=== PATIENT | female | born 1940 | race Caucasian/White ===

== ENCOUNTER 2018-06-03 11:57 | Emergency (ER) | payer MEDICARE, OTHER ==
[~2018-06-03] VITALS: Ht 167.6 cm; Wt 53.1 kg
--- NOTE | 2018-06-03 12:37 | NUR ---
PT IS IN ROOM #1B. DR TOLENTINO EVALUATED THE PT.
--- NOTE | 2018-06-03 12:37 | NUR ---
[facility] WAS CALLED ACCORDING TO DR TOLENTINO ORDER TO TRANSFER PT TO [facility] FOR CT OF THE CHEST. LUZ ELENA IS 15 MINUTES.
[2018-06-03] MEDS ORDERED: HYDROCODONE/APAP 5-325MG TABLET PO ONE (12:45)
[2018-06-03] MEDS ORDERED: HYDROCODONE/APAP 10-325 MG TABLET ONE (12:48)
[2018-06-03] MEDS ORDERED: HYDROCODONE/APAP 5-325MG TABLET ONE (12:50)
--- NOTE | 2018-06-03 14:36 | NUR ---
PT WAS TRANSFERED TO [facility] FOR CT OFTHE CHEST, PT CAME BACK ALREADY. NO S/S OF DISTRESS. PT TOLERATED TO PROCEDURE WITHOUT COMPLICATIONS.
[2018-06-03 14:38] VITALS: BP 139/79
--- NOTE | 2018-06-03 14:40 | NUR ---
PT WAS D/C TO HOME. D/C INSTRUCTIONS GIVEN TO THE PT.
== END 2018-06-03 14:42 | disposition home or self-care (01) ==
LOC: ER 11:59
DX: S20.212A Contusion of left front wall of thorax, initial encounter (principal); Z86.73 Personal history of transient ischemic attack (TIA), and cerebral infarction without residual deficits; W01.198A Fall on same level from slipping, tripping and stumbling with subsequent striking against other object, initial encounter; Y93.89 Activity, other specified; Y92.89 Other specified places as the place of occurrence of the external cause; Y99.8 Other external cause status
CPT/HCPCS: 71250; A4663

== ENCOUNTER 2018-07-27 21:16 | Emergency (ER) | payer MEDICARE, BC ==
[~2018-07-27] VITALS: Ht 167.6 cm; Wt 67.1 kg
[2018-07-27] MEDS ORDERED: ALTEPLASE 100 MG VIAL IV ONE ×2 (21:18→22:00)
--- NOTE | 2018-07-27 21:26 | NUR ---
Patient out of unit for ct scan via gurny with staff nurse and warehouse inventory clerk
--- NOTE | 2018-07-27 21:30 | NUR ---
While being transport from [facility] to ct scan table patient vomited x1. Patient able to state full name with slurred speech. 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 Able to lift bilateral lower extremity. No facial drooping noted
[2018-07-27 21:35] LABS: BASOPHILS % (AUTO) 0.7 % (0.0-2.0); EOSINOPHILS # (AUTO) 0.1 K/uL (0.0-0.7); EOSINOPHILS % (AUTO) 0.9 % (0.0-7.0); HEMATOCRIT 38.1 % (31.2-41.9); LYMPHOCYTES # (AUTO) 3.5 K/uL (20.0-40.0); LYMPHOCYTES % (AUTO) 55.7 % (20.5-51.5); MEAN CORPUSCULAR HEMOGLOBIN 31.3 uug (24.7-32.8); MEAN CORPUSCULAR HGB CONC 34 g/dL (32.3-35.6); MEAN CORPUSCULAR VOLUME 91.5 fL (75.5-95.3); MONOCYTES # (AUTO) 0.4 K/uL (2.0-10.0); MONOCYTES % (AUTO) 5.8 % (0.0-11.0); NEUTROPHILS # (AUTO) 2.3 K/uL (1.8-8.9); NEUTROPHILS % (AUTO) 36.9 % (38.5-71.5); PLATELET COUNT (AUTO) 202 K/uL (179-408); RED BLOOD CELL COUNT(AUTO) 4.16 MIL/uL (3.63-4.92); WHITE BLOOD COUNT (AUTO) 6.3 K/uL (3.8-11.8)
--- NOTE | 2018-07-27 21:38 | NUR ---
Checked patient's Wt. on bed scale. Result 63.6. Will give 5.7mg/ml iv bolus over 1minute per protocol
--- NOTE | 2018-07-27 21:40 | NUR ---
Started TPA infusion at 51.5mg/hr as ordered
--- NOTE | 2018-07-27 21:40 | NUR ---
Patient back from ct scan with no distress noted
--- NOTE | 2018-07-27 21:41 | NUR ---
Dr Moreno neurologist into assess patient via [employer]
[2018-07-27 21:43] LABS: CARBON DIOXIDE 28 mmol/L (21-32); CHLORIDE 106 mmol/L (98-107); CREATININE 0.8 mg/dL (0.6-1.3); GLUCOSE 95 mg/dL (74-106); POTASSIUM 3.7 mmol/L (3.5-5.1); UREA NITROGEN, BLOOD 11 mg/dL (7-18)
[2018-07-27] MEDS ORDERED: ONDANSETRON 4 MG/2 ML VIAL IV ONE (21:45)
[2018-07-27 21:48] LABS: ALANINE AMINOTRANSFERASE 33 U/L (14-59); ALKALINE PHOSPHATASE 47 U/L (50-136); ASPARTATE AMINOTRANSFERASE 16 U/L (15-37); BILIRUBIN,DIRECT 0.1 mg/dL (0.0-0.2); BILIRUBIN,TOTAL 0.3 mg/dL (0.2-1.0); TOTAL PROTEIN, SERUM 6.4 g/dL (6.4-8.2)
[2018-07-27] MEDS ORDERED: ONDANSETRON 4 MG/2 ML VIAL ONE (21:50)
[2018-07-27] MEDS ORDERED: ASPI81TA31 PO (21:56)
[2018-07-27 21:58] LABS: ETHANOL 279 MG/DL (0-0)
--- NOTE | 2018-07-27 22:04 | NUR ---
Pt went down to radiology dept for CTA.
[2018-07-27] MEDS ORDERED: GABA-532 PO (22:05)
[2018-07-27] MEDS ORDERED: ATOR20TA PO (22:05)
[2018-07-27] MEDS ORDERED: IOHEXOL 350 100 ML INFUS..BTL ONE (22:11)
[2018-07-27] MEDS ORDERED: IV NORMAL SALINE 250 ML IV ONE (22:11)
[2018-07-27] MEDS ORDERED: SWABABLE VALVE TRANSFER SET EA MC ONE (22:11)
[2018-07-27] MEDS ORDERED: NORMAL SALINE FLUSH 10 ML DISP.SYRIN ONE (22:11)
--- NOTE | 2018-07-27 22:30 | NUR ---
Patient back from CTA with no distress noted
--- NOTE | 2018-07-27 22:41 | NUR ---
TPA completed. 50ml bag of NS hung per protocol to flush line
--- NOTE | 2018-07-27 23:01 | NUR ---
Spoke to Harpreet from [facility] [phone]. Will fax facesheet as requested [phone]
--- NOTE | 2018-07-27 23:50 | NUR ---
Tele stroke transfer team from [facility] return call. Will draft roller picker patient in 15mins. Dr Randolph is accepting
--- NOTE | 2018-07-28 00:08 | NUR ---
Patient will be going to [facility] room 0190.
--- NOTE | 2018-07-28 00:19 | NUR ---
Gave SBAR report to Goldie [facility] nurse at [facility]
--- NOTE | 2018-07-28 00:28 | NUR ---
Gave SBAR report to Shanna Ely [facility] transport team
--- NOTE | 2018-07-28 00:35 | NUR ---
Transfered to [facility] via [facility]
--- NOTE | 2018-07-28 01:15 | NUR ---
Owen arreola in [facility] - 07/28/18 at [id number] Nye spoke with DR De La Cruz [phone]
== END 2018-07-28 00:35 | disposition short-term general hospital (02) ==
LOC: ER 21:17
DX: R41.82 Altered mental status, unspecified (principal); F10.129 Alcohol abuse with intoxication, unspecified; Z86.73 Personal history of transient ischemic attack (TIA), and cerebral infarction without residual deficits
CPT/HCPCS: 36415; 37195; 70450; 70496; 70498; 71045; 80048; 80061; 80076; 83605 ×2; 84484; 85025; 85730; 87040 ×2; 96374; 99285; A4663; G0480; J2405; J2997; J3490; J7050; Q9967; 70030-TC

== ENCOUNTER 2019-02-08 11:11 | Emergency (ER) | payer MEDICARE, OTHER ==
[~2019-02-08] VITALS: Ht 167.6 cm; Wt 65.8 kg
[~2019-02-08 11:11] MED LIST: ASPI81TA31 PO; ATOR20TA PO; GABA-532 PO
[2019-02-08] MEDS ORDERED: ONDANSETRON 4 MG/2 ML VIAL IV ONE (12:15)
[2019-02-08] MEDS ORDERED: MORPHINE SULFATE 2 MG/1 ML DISP.SYRIN IV ONE (12:15)
[2019-02-08] MEDS ORDERED: MORPHINE SULFATE 4 MG/1 ML DISP.SYRIN ONE (12:20)
[2019-02-08] MEDS ORDERED: ONDANSETRON 4 MG/2 ML VIAL ONE (12:21)
[2019-02-08 12:59] LABS: BASOPHILS % (AUTO) 0.9 % (0.0-2.0); EOSINOPHILS # (AUTO) 0.1 K/uL (0.0-0.7); EOSINOPHILS % (AUTO) 1.5 % (0.0-7.0); HEMATOCRIT 40.9 % (31.2-41.9); HEMOGLOBIN 13.7 g/dL (10.9-14.3); LYMPHOCYTES # (AUTO) 1.6 K/uL (20.0-40.0); MEAN CORPUSCULAR HEMOGLOBIN 29.9 uug (24.7-32.8); MEAN CORPUSCULAR HGB CONC 33 g/dL (32.3-35.6); MEAN CORPUSCULAR VOLUME 89.5 fL (75.5-95.3); MONOCYTES # (AUTO) 0.4 K/uL (2.0-10.0); MONOCYTES % (AUTO) 7.3 % (0.0-11.0); NEUTROPHILS # (AUTO) 3.5 K/uL (1.8-8.9); NEUTROPHILS % (AUTO) 62.3 % (38.5-71.5); PLATELET COUNT (AUTO) 182 K/uL (179-408); RED BLOOD CELL COUNT(AUTO) 4.56 MIL/uL (3.63-4.92); WHITE BLOOD COUNT (AUTO) 5.6 K/uL (3.8-11.8)
[2019-02-08 13:13] LABS: CARBON DIOXIDE 27 mmol/L (21-32); CHLORIDE 106 mmol/L (98-107); CREATININE 0.8 mg/dL (0.6-1.3); GLUCOSE 103 mg/dL (74-106); POTASSIUM 4.2 mmol/L (3.5-5.1); UREA NITROGEN, BLOOD 15 mg/dL (7-18)
[2019-02-08 13:17] LABS: ALANINE AMINOTRANSFERASE 25 U/L (14-59); ALKALINE PHOSPHATASE 54 U/L (50-136); ASPARTATE AMINOTRANSFERASE 16 U/L (15-37); BILIRUBIN,DIRECT 0.1 mg/dL (0.0-0.2); BILIRUBIN,TOTAL 0.4 mg/dL (0.2-1.0); LIPASE 112 U/L (73-393); TOTAL PROTEIN, SERUM 6.8 g/dL (6.4-8.2)
[2019-02-08 13:31] LABS: *BILIRUBIN,URIN NEGATIVE (NEGATIVE); *BLOOD, URINE NEGATIVE (NEGATIVE); *CLARITY,URINE CLEAR (CLEAR); *COLOR,URINE YELLOW (YELLOW); *KETONES,URINE NEGATIVE (NEGATIVE); *UROBILINOGEN,URINE 0.2 E.U./dl (NORMAL); LEUKOCYTE ESTERASE ,URINE NEGATIVE (NEGATIVE); NITRITE, URINE NEGATIVE (NEGATIVE); PH,URINE 6.5 (5.0-8.0); UGLUCOSE NEGATIVE (NEGATIVE)
[2019-02-08 13:34] LABS: BACTERIA,URINE NONE SEEN /HPF (NONE SEEN); RBC,URINE 0-3 /HPF (0-3); SQUAMOUS EPITHELIAL CELL,UR FEW /HPF (NONE SEEN); WBC,URINE 0-3 /HPF (0-3)
--- NOTE | 2019-02-08 13:55 | NUR ---
Patient discharged to home in stable conditon. Written and verbal after care instructions given. Patient verbalizes understanding of instructions.pt deneis any pain or nausea. pt walks in steady gait. pt accompanied by , not driving
[2019-02-08 13:57] VITALS: BP 121/71
== END 2019-02-08 13:59 | disposition home or self-care (01) ==
LOC: ER 11:11
DX: R10.9 Unspecified abdominal pain (principal); E78.5 Hyperlipidemia, unspecified; Z79.82 Long term (current) use of aspirin; Z79.899 Other long term (current) drug therapy; Z86.73 Personal history of transient ischemic attack (TIA), and cerebral infarction without residual deficits
CPT/HCPCS: 36415; 71045; 74176; 80048; 80076; 81001; 83690; 84484; 85025; 85379; 85651; 85730; 93005; 96374; 96375; 99284; J2270; J2405; 70030-TC; A4663

== ENCOUNTER 2019-05-29 18:22 | Emergency (ER) | payer MEDICARE, BC ==
[~2019-05-29] VITALS: Ht 167.6 cm; Wt 54.4 kg
--- NOTE | 2019-05-29 18:47 | NUR ---
PT IS IN ROOM #2A WAITING FOR DR TYLER EVALUATION.
--- NOTE | 2019-05-29 19:22 | NUR ---
Dr. Guerra at bedside for MSE.
[2019-05-29] MEDS ORDERED: ACETAMINOPHEN ES 500 MG TABLET PO ONE (19:45)
[2019-05-29] MEDS ORDERED: ACETAMINOPHEN ES 500 MG TABLET ONE (19:52)
--- NOTE | 2019-05-29 20:08 | NUR ---
Ultrasound at bedside.
--- NOTE | 2019-05-29 20:39 | NUR ---
Patient discharged to home in stable conditon. Written and verbal after care instructions given. Patient verbalizes understanding of instructions. Pt ambulated out of ER with steady gait, no acute signs of distress, VSS, all belongings taken.
[2019-05-29 20:40] VITALS: BP 146/87
== END 2019-05-29 20:41 | disposition home or self-care (01) ==
LOC: ER 18:24
DX: R60.9 Edema, unspecified (principal); R51 Headache; E78.5 Hyperlipidemia, unspecified; Z79.82 Long term (current) use of aspirin; Z79.899 Other long term (current) drug therapy
CPT/HCPCS: A4663; A9150

== ENCOUNTER 2022-08-23 12:45 | Emergency (ER) | payer BC, MEDICARE ==
[~2022-08-23] VITALS: Ht 165.1 cm; Wt 59.0 kg
--- NOTE | 2022-08-23 13:06 | NUR ---
Dr Lopez at the bedside for MSE.
[2022-08-23] MEDS ORDERED: UBID100C13 PO (13:19)
[2022-08-23] MEDS ORDERED: GABA-532 PO (13:19)
[2022-08-23] MEDS ORDERED: CALC-1258 PO (13:19)
[2022-08-23] MEDS ORDERED: ATOR20TA PO (13:19)
[2022-08-23] MEDS ORDERED: POTA-194 PO (13:19)
[2022-08-23] MEDS ORDERED: MIRT-93 PO (13:19)
[2022-08-23] MEDS ORDERED: MULT-594 PO (13:19)
[2022-08-23] MEDS ORDERED: metoprolol PO (13:19)
[2022-08-23 13:30] LABS: HEMATOCRIT 40.2 % (31.2-41.9); MEAN CORPUSCULAR HEMOGLOBIN 30.6 uug (24.7-32.8); MEAN CORPUSCULAR VOLUME 90.7 fL (75.5-95.3); PLATELET COUNT (AUTO) 210 K/uL (179-408)
[2022-08-23] MEDS ORDERED: IV NORMAL SALINE 1000 ML BAG IV ONE (13:30)
--- NOTE | 2022-08-23 13:32 | NUR ---
Pt out of ER for Ct scan.
[2022-08-23 13:52] LABS: CARBON DIOXIDE 32 mmol/L (21-32); CHLORIDE 105 mmol/L (98-107); GLUCOSE 111 mg/dL (74-106); POTASSIUM 3.7 mmol/L (3.5-5.1); UREA NITROGEN, BLOOD 12 mg/dL (7-18)
[2022-08-23 14:00] LABS: ALANINE AMINOTRANSFERASE 23 U/L (14-59); ALKALINE PHOSPHATASE 48 U/L (50-136); ASPARTATE AMINOTRANSFERASE 8 U/L (15-37); BILIRUBIN,DIRECT 0.1 mg/dL (0.0-0.2); BILIRUBIN,TOTAL 0.4 mg/dL (0.2-1.0); TOTAL PROTEIN, SERUM 6.8 g/dL (6.4-8.2)
[2022-08-23 14:05] LABS: THYROID STIMULATING HORMONE 2.806 mIU/mL (0.358-3.740)
--- NOTE | 2022-08-23 14:39 | NUR ---
Discontinued L AC saline lock d/t infiltration, restarted on R forearm, patent and secured. IV hydration well tolerated.
[2022-08-23 15:39] VITALS: BP 130/80
--- NOTE | 2022-08-23 15:40 | NUR ---
Patient discharged to home in stable condition. Written and verbal after care instructions given. Patient verbalizes understanding of instructions. Stressed follow up or return to ER for worsening s/s. D/C Saline lock, covered with gauze. Assisted pt. walking to car, picked up by dtr and .
== END 2022-08-23 15:48 | disposition home or self-care (01) ==
LOC: ER 12:45
DX: R42 Dizziness and giddiness (principal); I70.0 Atherosclerosis of aorta; Z86.73 Personal history of transient ischemic attack (TIA), and cerebral infarction without residual deficits; I10 Essential (primary) hypertension; E78.5 Hyperlipidemia, unspecified; Z87.01 Personal history of pneumonia (recurrent); Z87.898 Personal history of other specified conditions; M19.90 Unspecified osteoarthritis, unspecified site; Z79.899 Other long term (current) drug therapy; Z79.82 Long term (current) use of aspirin; Z20.822 Contact with and (suspected) exposure to COVID-19
CPT/HCPCS: 99285; 96360; 70450; 71045; 87426; 80076; 80048; 82962; 83880; 84443; 85025; 84484; 93005; J7040; 36415; A4663

== ENCOUNTER 2023-07-12 17:51 | Inpatient (IN) | payer BC ==
[~2023-07-12] VITALS: Ht 165.1 cm; Wt 49.0 kg
[~2023-07-12 17:51] MED LIST changes: -ASPI81TA31 PO; +CALC-1258 PO; +MIRT-93 PO; +MULT-594 PO; +POTA-194 PO; +UBID100C13 PO; +metoprolol PO
[2023-07-12] MEDS ORDERED: NALT50TA PO (18:28)
[2023-07-12] MEDS ORDERED: IV NORMAL SALINE 1000 ML BAG IV ONE (19:15)
[2023-07-12] MEDS ORDERED: MECLIZINE HCL 25 MG TABLET PO ONE (19:15)
[2023-07-12 19:18] LABS: BASOPHILS # (AUTO) 0.1 K/UL (0.0-0.2); BASOPHILS % (AUTO) 1.1 % (0.0-2.0); EOSINOPHILS # (AUTO) 0.1 K/uL (0.0-0.7); EOSINOPHILS % (AUTO) 1.3 % (0.0-7.0); HEMOGLOBIN 14.1 g/dL (10.9-14.3); LYMPHOCYTES # (AUTO) 1.8 K/uL (0.8-4.8); LYMPHOCYTES % (AUTO) 37.3 % (20.5-51.5); MEAN CORPUSCULAR HEMOGLOBIN 30.3 uug (24.7-32.8); MEAN CORPUSCULAR HGB CONC 33 g/dL (32.3-35.6); MEAN CORPUSCULAR VOLUME 92.5 fL (75.5-95.3); MONOCYTES # (AUTO) 0.3 K/uL (0.1-1.30); MONOCYTES % (AUTO) 6.9 % (0.0-11.0); NEUTROPHILS # (AUTO) 2.5 K/uL (1.8-8.9); NEUTROPHILS % (AUTO) 53.4 % (38.5-71.5); PLATELET COUNT (AUTO) 177 K/uL (179-408); RED BLOOD CELL COUNT(AUTO) 4.65 MIL/uL (3.63-4.92); RED CELL DISTRIBUTION WIDTH 15.6 % (12.3-17.7); WHITE BLOOD COUNT (AUTO) 4.7 K/uL (3.8-11.8)
[2023-07-12 19:19] LABS: DIFFERENTIAL COMMENT 1
[2023-07-12 19:28] LABS: CARBON DIOXIDE 29 mmol/L (21-32); CHLORIDE 105 mmol/L (98-107); CREATININE 0.9 mg/dL (0.6-1.3); GLUCOSE 103 mg/dL (74-106); SODIUM SERUM 140 mmol/L (136-145); UREA NITROGEN, BLOOD 16 mg/dL (7-18)
[2023-07-12] MEDS ORDERED: MECLIZINE HCL 25 MG TABLET ONE (19:28)
[2023-07-12] MEDS ORDERED: ONDANSETRON 4 MG/2 ML VIAL IV PRN (22:30)
[2023-07-12] MEDS ORDERED: ACETAMINOPHEN 325 MG TABLET PO PRN (22:30)
[2023-07-12] MEDS ORDERED: MAGNESIUM HYDROXIDE 30 ML LIQUID UDC PO PRN (22:30)
[2023-07-12] MEDS ORDERED: REMEDY ESSENTIAL ZINC PASTE 113 GM TP PRN (22:30)
[2023-07-12 23:39] VITALS: BP_SYST 130; BP_SYST 135; BP_SYST 141; BP_DIAS 64; BP_DIAS 71; TEMP 97.3; O2SAT 96
[2023-07-13] MEDS: ENOXAPARIN SODIUM 40 MG/0.4 ML DISP.SYRIN SQ SCH ×2 (00:44→21:00)
[2023-07-13 04:00] VITALS: BP 108/46; TEMP 97.6; O2SAT 98
[2023-07-13 06:36] LABS: BASOPHILS # (AUTO) 0.1 K/UL (0.0-0.2); EOSINOPHILS # (AUTO) 0.1 K/uL (0.0-0.7); EOSINOPHILS % (AUTO) 1.9 % (0.0-7.0); HEMATOCRIT 39.3 % (31.2-41.9); HEMOGLOBIN 13.1 g/dL (10.9-14.3); LYMPHOCYTES # (AUTO) 3.1 K/uL (0.8-4.8); LYMPHOCYTES % (AUTO) 53.7 % (20.5-51.5); MEAN CORPUSCULAR HEMOGLOBIN 30.8 uug (24.7-32.8); MEAN CORPUSCULAR HGB CONC 33 g/dL (32.3-35.6); MEAN CORPUSCULAR VOLUME 92.3 fL (75.5-95.3); MONOCYTES # (AUTO) 0.4 K/uL (0.1-1.30); MONOCYTES % (AUTO) 6.9 % (0.0-11.0); NEUTROPHILS # (AUTO) 2.1 K/uL (1.8-8.9); NEUTROPHILS % (AUTO) 36.5 % (38.5-71.5); PLATELET COUNT (AUTO) 162 K/uL (179-408); RED BLOOD CELL COUNT(AUTO) 4.25 MIL/uL (3.63-4.92); RED CELL DISTRIBUTION WIDTH 15.3 % (12.3-17.7); WHITE BLOOD COUNT (AUTO) 5.7 K/uL (3.8-11.8)
[2023-07-13] MEDS: PANTOPRAZOLE SODIUM 40 MG TABLET.DR PO SCH (06:40)
[2023-07-13 06:41] LABS: DIFFERENTIAL COMMENT 1
[2023-07-13 06:54] LABS: CALCIUM 8.8 mg/dL (8.5-10.1); CARBON DIOXIDE 30 mmol/L (21-32); CHLORIDE 109 mmol/L (98-107); CHOLESTEROL 156 mg/dL (<200); CREATININE 0.8 mg/dL (0.6-1.3); GLUCOSE 86 mg/dL (74-106); HDL CHOLESTEROL 79 mg/dL (40-60); MAGNESIUM 1.9 mg/dL (1.8-2.4); PHOSPHOROUS 3.4 mg/dL (2.5-4.9); POTASSIUM 4.1 mmol/L (3.5-5.1); SODIUM SERUM 144 mmol/L (136-145); TRIGLYCERIDES 67 MG/DL (30-150); UREA NITROGEN, BLOOD 11 mg/dL (7-18)
[2023-07-13] MEDS ORDERED: Medication Not On Formulary EA (Ubidecarenone (Coq-10) 200 MG) PO SCH (09:00)
[2023-07-13] MEDS: CHOLECALCIFEROL 400 UNITS TABLET PO SCH (09:03)
[2023-07-13] MEDS: MULTIVITAMINS,THERAPEUTIC TABLET PO SCH (09:03)
[2023-07-13] MEDS: CALCIUM CARB/VITAMIN D 500MG-200UNITS TABLET PO SCH (09:03)
[2023-07-13 11:50] VITALS: BP 102/52; TEMP 97.9; O2SAT 100
[2023-07-13 16:00] VITALS: BP 108/60; TEMP 98.2; O2SAT 97
[2023-07-13 20:00] VITALS: BP 132/76; TEMP 98; O2SAT 97
[2023-07-13] MEDS ORDERED: SWABABLE VALVE TRANSFER SET EA MC ONE (20:16)
[2023-07-13] MEDS ORDERED: IOHEXOL 350 100 ML INFUS..BTL ONE (20:16)
[2023-07-13] MEDS ORDERED: IV NORMAL SALINE 250 ML IV ONE (20:17)
[2023-07-13] MEDS: ATORVASTATIN 20 MG TABLET PO SCH (21:18)
[2023-07-14] VITALS: BP 121/69; TEMP 97.6; O2SAT 97
[2023-07-14 04:00] VITALS: BP 125/71; TEMP 98; O2SAT 98
[2023-07-14] MEDS: PANTOPRAZOLE SODIUM 40 MG TABLET.DR PO SCH (06:09)
[2023-07-14] MEDS: CHOLECALCIFEROL 400 UNITS TABLET PO SCH (08:49)
[2023-07-14] MEDS: MULTIVITAMINS,THERAPEUTIC TABLET PO SCH (08:50)
[2023-07-14] MEDS: CALCIUM CARB/VITAMIN D 500MG-200UNITS TABLET PO SCH (08:50)
[2023-07-14 11:18] VITALS: BP 119/64; TEMP 97.9; O2SAT 95
[2023-07-14 16:27] VITALS: BP 119/66; TEMP 98.1; O2SAT 96
[2023-07-14] MEDS: ATORVASTATIN 20 MG TABLET PO SCH (20:29)
[2023-07-14 20:30] VITALS: BP 127/68; TEMP 98.5; O2SAT 98
[2023-07-14] MEDS: ENOXAPARIN SODIUM 40 MG/0.4 ML DISP.SYRIN SQ SCH (20:30)
[2023-07-15 00:20] VITALS: BP 126/78; TEMP 98.6; O2SAT 96
[2023-07-15] MEDS: PANTOPRAZOLE SODIUM 40 MG TABLET.DR PO SCH (06:06)
[2023-07-15 07:58] LABS: EOSINOPHILS # (AUTO) 0.1 K/uL (0.0-0.7); HEMOGLOBIN 13.6 g/dL (10.9-14.3); LYMPHOCYTES # (AUTO) 2.2 K/uL (0.8-4.8); LYMPHOCYTES % (AUTO) 48.1 % (20.5-51.5); MEAN CORPUSCULAR HEMOGLOBIN 30.9 uug (24.7-32.8); MEAN CORPUSCULAR HGB CONC 34 g/dL (32.3-35.6); MEAN CORPUSCULAR VOLUME 90.8 fL (75.5-95.3); MONOCYTES # (AUTO) 0.3 K/uL (0.1-1.30); MONOCYTES % (AUTO) 7.4 % (0.0-11.0); NEUTROPHILS # (AUTO) 1.9 K/uL (1.8-8.9); NEUTROPHILS % (AUTO) 41.5 % (38.5-71.5); PLATELET COUNT (AUTO) 172 K/uL (179-408); RED CELL DISTRIBUTION WIDTH 15.1 % (12.3-17.7); WHITE BLOOD COUNT (AUTO) 4.5 K/uL (3.8-11.8)
[2023-07-15 08:12] LABS: DIFFERENTIAL COMMENT 1
[2023-07-15 08:18] LABS: CALCIUM 9.1 mg/dL (8.5-10.1); CARBON DIOXIDE 29 mmol/L (21-32); CHLORIDE 105 mmol/L (98-107); CREATININE 0.8 mg/dL (0.6-1.3); GLUCOSE 85 mg/dL (74-106); PHOSPHOROUS 3.6 mg/dL (2.5-4.9); POTASSIUM 3.7 mmol/L (3.5-5.1); SODIUM SERUM 141 mmol/L (136-145); UREA NITROGEN, BLOOD 10 mg/dL (7-18)
[2023-07-15] MEDS: CHOLECALCIFEROL 400 UNITS TABLET PO SCH (08:25)
[2023-07-15] MEDS: CALCIUM CARB/VITAMIN D 500MG-200UNITS TABLET PO SCH (08:25)
[2023-07-15] MEDS: MULTIVITAMINS,THERAPEUTIC TABLET PO SCH (08:25)
[2023-07-15] MEDS: IV NS 1000 ML 1,000 ML IV PRN (09:59)
[2023-07-15] MEDS ORDERED: MAGNESIUM SULFATE/D5W 100 ML IV SCH (11:45)
[2023-07-15] MEDS ORDERED: VALPROATE SODIUM IV 250 MG in IV DEXTROSE 5% 100 ML IV SCH (11:45)
[2023-07-15] MEDS ORDERED: NALTREXONE 50 MG PO SCH ×2 (12:00→21:00)
[2023-07-15 12:30] VITALS: BP 120/77; TEMP 98.3; O2SAT 97
[2023-07-15] MEDS: GLUCERNA SHAKE 237 ML CAN PO SCH (16:32)
[2023-07-15 20:00] VITALS: BP 124/60; TEMP 98; O2SAT 98
[2023-07-15] MEDS: ATORVASTATIN 20 MG TABLET PO SCH (20:20)
[2023-07-15] MEDS: ENOXAPARIN SODIUM 40 MG/0.4 ML DISP.SYRIN SQ SCH (21:00)
[2023-07-16] VITALS: BP 110/69; TEMP 98.6; O2SAT 96
[2023-07-16 04:00] VITALS: BP 103/47; TEMP 97.7; O2SAT 96
[2023-07-16] MEDS: IV NS 1000 ML 1,000 ML IV PRN (04:33)
[2023-07-16] MEDS: PANTOPRAZOLE SODIUM 40 MG TABLET.DR PO SCH (06:03)
[2023-07-16] MEDS: MULTIVITAMINS,THERAPEUTIC TABLET PO SCH (08:43)
[2023-07-16] MEDS: CHOLECALCIFEROL 400 UNITS TABLET PO SCH (08:43)
[2023-07-16] MEDS: CALCIUM CARB/VITAMIN D 500MG-200UNITS TABLET PO SCH (08:43)
[2023-07-16] MEDS: GLUCERNA SHAKE 237 ML CAN PO SCH (08:44)
[2023-07-16] MEDS ORDERED: ASPIRIN EC 81 MG TABLET.DR PO SCH (09:00)
[2023-07-16 11:31] VITALS: BP 123/69; TEMP 97.7; O2SAT 96
[2023-07-16] MEDS ORDERED: ASPI-618 PO (11:47)
[2023-07-16 14:54] VITALS: BP_SYST 111; BP_SYST 116; BP_DIAS 51; BP_DIAS 81; BP_DIAS 84
== END 2023-07-16 14:40 | disposition home health service (06) | DRG 312 ==
LOC: ER 17:51 → TELE3 23:14
PROVIDERS: ADMIT Student in an Organized Health Care Education/Training Program; ATTEND Internal Medicine
DX: I95.1 Orthostatic hypotension (principal); D68.69 Other thrombophilia; Z68.1 Body mass index [BMI] 19.9 or less, adult; E44.0 Moderate protein-calorie malnutrition; R00.1 Bradycardia, unspecified; G93.89 Other specified disorders of brain; E78.5 Hyperlipidemia, unspecified; E86.0 Dehydration; I44.0 Atrioventricular block, first degree; I48.0 Paroxysmal atrial fibrillation; Z86.73 Personal history of transient ischemic attack (TIA), and cerebral infarction without residual deficits; Z87.891 Personal history of nicotine dependence; Z85.828 Personal history of other malignant neoplasm of skin; M19.90 Unspecified osteoarthritis, unspecified site; I70.0 Atherosclerosis of aorta; D69.6 Thrombocytopenia, unspecified; F03.90 Unspecified dementia, unspecified severity, without behavioral disturbance, psychotic disturbance, mood disturbance, and anxiety; R62.7 Adult failure to thrive; F10.20 Alcohol dependence, uncomplicated; I69.198 Other sequelae of nontraumatic intracerebral hemorrhage
CPT/HCPCS: 36415; 70450; 70496; 71045; 83735; 84100; 84484; 85025; 85730; 93005; 93307; A4663; A6209; G0378; J1650; J7040; J8597; Q9967

== ENCOUNTER 2023-10-09 14:58 | Emergency (ER) | payer BC ==
[~2023-10-09] VITALS: Ht 165.1 cm; Wt 47.6 kg
[~2023-10-09 14:58] MED LIST changes: +ASPI-618 PO; -MIRT-93 PO; +NALT50TA PO; -POTA-194 PO; -metoprolol PO
[2023-10-09] MEDS ORDERED: MIRT-93 PO (15:24)
[2023-10-09] MEDS ORDERED: SENN-18 PO (15:24)
[2023-10-09 15:55] LABS: BASOPHILS % (AUTO) 0.9 % (0.0-2.0); EOSINOPHILS % (AUTO) 0.5 % (0.0-7.0); HEMATOCRIT 42.6 % (31.2-41.9); HEMOGLOBIN 14.1 g/dL (10.9-14.3); LYMPHOCYTES # (AUTO) 1.5 K/uL (0.8-4.8); LYMPHOCYTES % (AUTO) 35.4 % (20.5-51.5); MEAN CORPUSCULAR HEMOGLOBIN 30.3 uug (24.7-32.8); MEAN CORPUSCULAR HGB CONC 33 g/dL (32.3-35.6); MEAN CORPUSCULAR VOLUME 91.3 fL (75.5-95.3); MONOCYTES # (AUTO) 0.3 K/uL (0.1-1.30); MONOCYTES % (AUTO) 6.8 % (0.0-11.0); NEUTROPHILS # (AUTO) 2.4 K/uL (1.8-8.9); NEUTROPHILS % (AUTO) 56.4 % (38.5-71.5); PLATELET COUNT (AUTO) 189 K/uL (179-408); RED BLOOD CELL COUNT(AUTO) 4.66 MIL/uL (3.63-4.92); RED CELL DISTRIBUTION WIDTH 15.1 % (12.3-17.7); WHITE BLOOD COUNT (AUTO) 4.3 K/uL (3.8-11.8)
[2023-10-09 16:01] LABS: CARBON DIOXIDE 32 mmol/L (21-32); CHLORIDE 104 mmol/L (98-107); CREATININE 0.9 mg/dL (0.6-1.3); GLUCOSE 143 mg/dL (74-106); POTASSIUM 3.9 mmol/L (3.5-5.1); SODIUM SERUM 143 mmol/L (136-145); UREA NITROGEN, BLOOD 13 mg/dL (7-18)
[2023-10-09 16:02] LABS: CALCIUM 9.7 mg/dL (8.5-10.1)
[2023-10-09 16:05] LABS: DIFFERENTIAL COMMENT 1
[2023-10-09 16:55] VITALS: O2SAT 97
[2023-10-09 17:00] LABS: *BILIRUBIN,URIN NEGATIVE (NEGATIVE); *BLOOD, URINE NEGATIVE (NEGATIVE); *CLARITY,URINE CLEAR (CLEAR); *COLOR,URINE YELLOW (YELLOW); *KETONES,URINE NEGATIVE (NEGATIVE); *PROTEIN,URINE NEGATIVE (NEGATIVE); *UROBILINOGEN,URINE 0.2 E.U./dl (NORMAL); LEUKOCYTE ESTERASE ,URINE NEGATIVE (NEGATIVE); NITRITE, URINE NEGATIVE (NEGATIVE); UGLUCOSE NEGATIVE (NEGATIVE)
== END 2023-10-09 17:26 | disposition home or self-care (01) ==
LOC: ER 14:58
DX: R53.1 Weakness (principal); E78.5 Hyperlipidemia, unspecified; R07.89 Other chest pain; Z79.82 Long term (current) use of aspirin; Z86.73 Personal history of transient ischemic attack (TIA), and cerebral infarction without residual deficits; Z79.899 Other long term (current) drug therapy
CPT/HCPCS: 36415; 71045; 85025; 93005; A4606; A4663

== ENCOUNTER 2024-06-18 12:55 | Emergency (ER) | payer BC ==
[~2024-06-18] VITALS: Ht 165.1 cm; Wt 46.3 kg
[~2024-06-18 12:55] MED LIST changes: +MIRT-93 PO; +SENN-18 PO
[2024-06-18] MEDS ORDERED: HYDR-3972 PO ×2 (14:37)
[2024-06-18] MEDS ORDERED: HYDROCODONE/APAP 5-325MG TABLET ONE (14:40)
[2024-06-18] MEDS: HYDROCODONE/APAP 5-325MG TABLET PO ONE (15:02)
[2024-06-18 15:04] VITALS: BP 111/71; TEMP 98; O2SAT 98
== END 2024-06-18 15:05 | disposition home or self-care (01) ==
LOC: ER 12:55
DX: S42.031A Displaced fracture of lateral end of right clavicle, initial encounter for closed fracture (principal); R51.9 Headache, unspecified; Z86.73 Personal history of transient ischemic attack (TIA), and cerebral infarction without residual deficits; F03.90 Unspecified dementia, unspecified severity, without behavioral disturbance, psychotic disturbance, mood disturbance, and anxiety; E78.5 Hyperlipidemia, unspecified; Z79.82 Long term (current) use of aspirin; Z79.899 Other long term (current) drug therapy; Z79.891 Long term (current) use of opiate analgesic; W18.39XA Other fall on same level, initial encounter; Y93.89 Activity, other specified; Y92.89 Other specified places as the place of occurrence of the external cause; Y99.8 Other external cause status
CPT/HCPCS: 70450; 71045; 73020; 93005; A4606; A4663

== ENCOUNTER 2024-09-15 15:46 | Emergency (ER) | payer BC ==
[~2024-09-15] VITALS: Ht 165.1 cm; Wt 47.6 kg
[~2024-09-15 15:46] MED LIST changes: +HYDR-3972 PO
[2024-09-15 18:12] VITALS: BP 118/77; TEMP 98; O2SAT 98
== END 2024-09-15 18:13 | disposition home or self-care (01) ==
LOC: ER 15:46
DX: S40.022A Contusion of left upper arm, initial encounter (principal); F03.A0 Unspecified dementia, mild, without behavioral disturbance, psychotic disturbance, mood disturbance, and anxiety; G93.89 Other specified disorders of brain; E78.5 Hyperlipidemia, unspecified; R51.9 Headache, unspecified; Z86.73 Personal history of transient ischemic attack (TIA), and cerebral infarction without residual deficits; Z85.828 Personal history of other malignant neoplasm of skin; Z79.82 Long term (current) use of aspirin; Z87.01 Personal history of pneumonia (recurrent); Z88.7 Allergy status to serum and vaccine; W01.0XXA Fall on same level from slipping, tripping and stumbling without subsequent striking against object, initial encounter; Y93.89 Activity, other specified; Y92.89 Other specified places as the place of occurrence of the external cause; Y99.8 Other external cause status
CPT/HCPCS: 70450; 71045; 72125; 73060; A4606; A4663

== ENCOUNTER 2024-10-22 19:36 | Inpatient (IN) | payer BC, MEDICARE ==
[~2024-10-22] VITALS: Ht 165.1 cm; Wt 48.5 kg
[2024-10-22 20:49] LABS: BASOPHILS % (AUTO) 0.3 % (0.0-2.0); EOSINOPHILS % (AUTO) 0.2 % (0.0-7.0); HEMATOCRIT 41.9 % (31.2-41.9); HEMOGLOBIN 13.8 g/dL (10.9-14.3); LYMPHOCYTES # (AUTO) 0.8 K/uL (0.8-4.8); LYMPHOCYTES % (AUTO) 7.9 % (20.5-51.5); MEAN CORPUSCULAR HEMOGLOBIN 29.4 uug (24.7-32.8); MEAN CORPUSCULAR HGB CONC 33 g/dL (32.3-35.6); MEAN CORPUSCULAR VOLUME 89.3 fL (75.5-95.3); MONOCYTES # (AUTO) 0.8 K/uL (0.1-1.30); MONOCYTES % (AUTO) 8.1 % (0.0-11.0); NEUTROPHILS # (AUTO) 8.7 K/uL (1.8-8.9); NEUTROPHILS % (AUTO) 83.5 % (38.5-71.5); PLATELET COUNT (AUTO) 168 K/uL (179-408); RED BLOOD CELL COUNT(AUTO) 4.69 MIL/uL (3.63-4.92); RED CELL DISTRIBUTION WIDTH 16.1 % (12.3-17.7); WHITE BLOOD COUNT (AUTO) 10.4 K/uL (3.8-11.8)
[2024-10-22 20:52] LABS: DIFFERENTIAL COMMENT 1
[2024-10-22 20:57] LABS: CALCIUM 10.1 mg/dL (8.5-10.1); CARBON DIOXIDE 30 mmol/L (21-32); CHLORIDE 105 mmol/L (98-107); CREATININE 0.8 mg/dL (0.6-1.3); GLUCOSE 108 mg/dL (74-106); POTASSIUM 3.8 mmol/L (3.5-5.1); SODIUM SERUM 143 mmol/L (136-145); UREA NITROGEN, BLOOD 17 mg/dL (7-18)
[2024-10-22 21:06] LABS: ALANINE AMINOTRANSFERASE 48 U/L (14-59); ALBUMIN 3.8 g/dL (3.4-5.0); ALKALINE PHOSPHATASE 77 U/L (50-136); ASPARTATE AMINOTRANSFERASE 28 U/L (15-37); BILIRUBIN,DIRECT 0.2 mg/dL (0.0-0.2); BILIRUBIN,TOTAL 0.7 mg/dL (0.2-1.0); TOTAL PROTEIN, SERUM 6.9 g/dL (6.4-8.2)
[2024-10-22 21:10] LABS: THYROID STIMULATING HORMONE 5.697 mIU/mL (0.358-3.740)
[2024-10-22] MEDS ORDERED: ASPIRIN 81 MG TAB.CHEW ONE (22:39)
[2024-10-22] MEDS: ASPIRIN 81 MG TAB.CHEW PO ONE (22:46)
[2024-10-22 23:52] LABS: *BILIRUBIN,URIN NEGATIVE (NEGATIVE); *BLOOD, URINE NEGATIVE (NEGATIVE); *CLARITY,URINE CLEAR (CLEAR); *COLOR,URINE YELLOW (YELLOW); *KETONES,URINE 2+ (NEGATIVE); *PROTEIN,URINE NEGATIVE (NEGATIVE); *UROBILINOGEN,URINE 0.2 E.U./dl (NORMAL); LEUKOCYTE ESTERASE ,URINE NEGATIVE (NEGATIVE); NITRITE, URINE NEGATIVE (NEGATIVE); UGLUCOSE NEGATIVE (NEGATIVE)
[2024-10-23] VITALS (7 sets, daily range): BP systolic 116–156; BP diastolic 73–89; TEMP 96.6–99.6; O2SAT 93–98
[2024-10-23 00:02] LABS: BACTERIA,URINE FEW /HPF (NONE SEEN); RBC,URINE 0-3 /HPF (0-3); SQUAMOUS EPITHELIAL CELL,UR FEW /HPF (NONE SEEN); URIC ACID CRYSTALS,URINE RARE /HPF (NONE SEEN); WBC,URINE 0-3 /HPF (0-3)
[2024-10-23] MEDS ORDERED: ONDANSETRON 4 MG/2 ML VIAL IV PRN (00:45)
[2024-10-23] MEDS: ENOXAPARIN SODIUM 40 MG/0.4 ML DISP.SYRIN SQ SCH (02:14)
[2024-10-23] MEDS: PANTOPRAZOLE SODIUM 40 MG TABLET.DR PO SCH (06:33)
[2024-10-23 07:24] LABS: BASOPHILS % (AUTO) 0.3 % (0.0-2.0); EOSINOPHILS # (AUTO) 0.1 K/uL (0.0-0.7); EOSINOPHILS % (AUTO) 1.2 % (0.0-7.0); HEMATOCRIT 40.7 % (31.2-41.9); HEMOGLOBIN 13.6 g/dL (10.9-14.3); LYMPHOCYTES # (AUTO) 1.5 K/uL (0.8-4.8); LYMPHOCYTES % (AUTO) 18.4 % (20.5-51.5); MEAN CORPUSCULAR HEMOGLOBIN 29.5 uug (24.7-32.8); MEAN CORPUSCULAR HGB CONC 34 g/dL (32.3-35.6); MEAN CORPUSCULAR VOLUME 88.1 fL (75.5-95.3); MONOCYTES # (AUTO) 0.7 K/uL (0.1-1.30); NEUTROPHILS % (AUTO) 72.1 % (38.5-71.5); PLATELET COUNT (AUTO) 165 K/uL (179-408); RED BLOOD CELL COUNT(AUTO) 4.62 MIL/uL (3.63-4.92); RED CELL DISTRIBUTION WIDTH 15.9 % (12.3-17.7); WHITE BLOOD COUNT (AUTO) 8.3 K/uL (3.8-11.8)
[2024-10-23 07:37] LABS: DIFFERENTIAL COMMENT 1
[2024-10-23 08:05] LABS: ALANINE AMINOTRANSFERASE 42 U/L (14-59); ALBUMIN 3.7 g/dL (3.4-5.0); ALKALINE PHOSPHATASE 77 U/L (50-136); ASPARTATE AMINOTRANSFERASE 29 U/L (15-37); BILIRUBIN,TOTAL 1.1 mg/dL (0.2-1.0); CALCIUM 9.7 mg/dL (8.5-10.1); CARBON DIOXIDE 30 mmol/L (21-32); CHLORIDE 104 mmol/L (98-107); CREATININE 0.8 mg/dL (0.6-1.3); GLUCOSE 105 mg/dL (74-106); PHOSPHOROUS 2.5 mg/dL (2.5-4.9); POTASSIUM 3.5 mmol/L (3.5-5.1); SODIUM SERUM 141 mmol/L (136-145); UREA NITROGEN, BLOOD 14 mg/dL (7-18)
[2024-10-23 08:34] LABS: THYROID STIMULATING HORMONE 6.683 mIU/mL (0.358-3.740)
[2024-10-23] MEDS ORDERED: CALCIUM CARBONATE PO SCH (09:00)
[2024-10-23] MEDS ORDERED: [UNRECOGNIZED DRUG - OTHER] PO SCH (09:00)
[2024-10-23] MEDS ORDERED: Medication Not On Formulary EA (Multivitamins (Multivitamin) 1 EACH) PO SCH (09:00)
[2024-10-23] MEDS ORDERED: VITAMIN D3 PO SCH (09:00)
[2024-10-23] MEDS ORDERED: ASPIRIN EC 81 MG TABLET.DR PO SCH ×2 (09:00)
[2024-10-23] MEDS: MULTIVITAMINS,THERAPEUTIC TABLET PO SCH (10:25)
[2024-10-23] MEDS: ACETAMINOPHEN 650 MG/20.3 ML LIQUID UDC PO PRN (10:25)
[2024-10-23] MEDS: ASPIRIN 81 MG TAB.CHEW PO SCH (10:25)
[2024-10-23] MEDS: SENNOSIDES 1 TABLET PO SCH (10:26)
[2024-10-23] MEDS ORDERED: SERT25TA PO (11:30)
[2024-10-23] MEDS ORDERED: FOLI1TAB94 PO (11:30)
[2024-10-23] MEDS ORDERED: CLOP75TA33 PO (11:30)
[2024-10-23] MEDS: CLOPIDOGREL 75 MG TABLET PO SCH (12:59)
[2024-10-23] MEDS: FOLIC ACID 1 MG TABLET PO SCH (12:59)
[2024-10-23] MEDS: HYDROCODONE/APAP 5-325MG TABLET PO PRN (13:01)
[2024-10-23] MEDS: HALOPERIDOL LACTATE 10 MG/5 ML ORAL SOLUTION UDC PO ONE (15:00)
[2024-10-23] MEDS ORDERED: SWABABLE VALVE TRANSFER SET EA MC ONE (16:04)
[2024-10-23] MEDS ORDERED: IV NORMAL SALINE 250 ML IV ONE (16:04)
[2024-10-23] MEDS ORDERED: IOHEXOL 350 100 ML INFUS..BTL ONE (16:04)
[2024-10-23] MEDS: ENSURE ENLIVE (VAN) 240 ML LIQUID PO SCH (17:00)
[2024-10-23] MEDS: CHOLECALCIFEROL 1,000 UNIT TABLET PO SCH (17:00)
[2024-10-23] MEDS ORDERED: MIRTAZAPINE 15 MG TABLET PO SCH (18:00)
[2024-10-23] MEDS: ATORVASTATIN 20 MG TABLET PO SCH (20:55)
[2024-10-23] MEDS: SERTRALINE HCL 50 MG TABLET PO SCH (20:55)
[2024-10-23] MEDS ORDERED: GABAPENTIN 100 MG CAPSULE PO SCH (21:00)
[2024-10-24 04:04] VITALS: BP 154/91; TEMP 97.9; O2SAT 96
[2024-10-24 06:42] LABS: BASOPHILS % (AUTO) 0.4 % (0.0-2.0); EOSINOPHILS # (AUTO) 0.1 K/uL (0.0-0.7); EOSINOPHILS % (AUTO) 1.2 % (0.0-7.0); HEMATOCRIT 41.4 % (31.2-41.9); HEMOGLOBIN 14.1 g/dL (10.9-14.3); LYMPHOCYTES # (AUTO) 1.2 K/uL (0.8-4.8); LYMPHOCYTES % (AUTO) 14.5 % (20.5-51.5); MEAN CORPUSCULAR HGB CONC 34 g/dL (32.3-35.6); MEAN CORPUSCULAR VOLUME 88.1 fL (75.5-95.3); MONOCYTES # (AUTO) 0.7 K/uL (0.1-1.30); MONOCYTES % (AUTO) 8.1 % (0.0-11.0); NEUTROPHILS # (AUTO) 6.5 K/uL (1.8-8.9); NEUTROPHILS % (AUTO) 75.8 % (38.5-71.5); PLATELET COUNT (AUTO) 153 K/uL (179-408); RED CELL DISTRIBUTION WIDTH 15.5 % (12.3-17.7); WHITE BLOOD COUNT (AUTO) 8.6 K/uL (3.8-11.8)
[2024-10-24 06:57] LABS: DIFFERENTIAL COMMENT 1
[2024-10-24 07:03] LABS: CALCIUM 10.1 mg/dL (8.5-10.1); CARBON DIOXIDE 26 mmol/L (21-32); CHLORIDE 104 mmol/L (98-107); CREATININE 0.7 mg/dL (0.6-1.3); GLUCOSE 116 mg/dL (74-106); MAGNESIUM 1.9 mg/dL (1.8-2.4); PHOSPHOROUS 2.6 mg/dL (2.5-4.9); POTASSIUM 3.6 mmol/L (3.5-5.1); SODIUM SERUM 140 mmol/L (136-145); UREA NITROGEN, BLOOD 9 mg/dL (7-18)
[2024-10-24 07:37] LABS: THYROID STIMULATING HORMONE 5.297 mIU/mL (0.358-3.740)
[2024-10-24 08:00] VITALS: BP 154/89; TEMP 97.7; O2SAT 96
[2024-10-24] MEDS: HALOPERIDOL LACTATE 10 MG/5 ML ORAL SOLUTION UDC PO ONE (09:38)
[2024-10-24 12:00] VITALS: BP 118/82; TEMP 98.2; O2SAT 96
[2024-10-24 16:22] VITALS: BP 102/64; TEMP 97.7; O2SAT 95
[2024-10-24] MEDS: IV D5 1/2 NS 1000 ML 1,000 ML IV ONE (16:30)
[2024-10-24] MEDS: FLEET ENEMA 133 ML BOTTLE RC ONE (16:48)
[2024-10-24] MEDS: MEGESTROL ACETATE 20 MG TABLET PO SCH (16:49)
[2024-10-24 20:30] VITALS: BP 104/68; TEMP 98.4; O2SAT 96
[2024-10-25 00:50] VITALS: BP 110/60; TEMP 98; O2SAT 95
[2024-10-25 04:00] VITALS: BP 134/65; TEMP 98.1; O2SAT 97
[2024-10-25 06:45] VITALS: TEMP 98.1
[2024-10-25 06:58] LABS: BASOPHILS % (AUTO) 0.4 % (0.0-2.0); EOSINOPHILS # (AUTO) 0.2 K/uL (0.0-0.7); EOSINOPHILS % (AUTO) 2.8 % (0.0-7.0); HEMATOCRIT 37.7 % (31.2-41.9); HEMOGLOBIN 12.9 g/dL (10.9-14.3); LYMPHOCYTES % (AUTO) 27.6 % (20.5-51.5); MEAN CORPUSCULAR HEMOGLOBIN 29.8 uug (24.7-32.8); MEAN CORPUSCULAR HGB CONC 34 g/dL (32.3-35.6); MEAN CORPUSCULAR VOLUME 87.3 fL (75.5-95.3); MONOCYTES # (AUTO) 0.7 K/uL (0.1-1.30); NEUTROPHILS # (AUTO) 4.2 K/uL (1.8-8.9); NEUTROPHILS % (AUTO) 59.2 % (38.5-71.5); PLATELET COUNT (AUTO) 150 K/uL (179-408); RED BLOOD CELL COUNT(AUTO) 4.31 MIL/uL (3.63-4.92); RED CELL DISTRIBUTION WIDTH 15.8 % (12.3-17.7); WHITE BLOOD COUNT (AUTO) 7.2 K/uL (3.8-11.8)
[2024-10-25 07:14] LABS: DIFFERENTIAL COMMENT 1
[2024-10-25 07:21] LABS: CALCIUM 9.6 mg/dL (8.5-10.1); CARBON DIOXIDE 26 mmol/L (21-32); CHLORIDE 105 mmol/L (98-107); CREATININE 0.7 mg/dL (0.6-1.3); GLUCOSE 128 mg/dL (74-106); PHOSPHOROUS 2.9 mg/dL (2.5-4.9); POTASSIUM 3.2 mmol/L (3.5-5.1); SODIUM SERUM 139 mmol/L (136-145); UREA NITROGEN, BLOOD 14 mg/dL (7-18)
[2024-10-25 08:00] VITALS: BP 117/78; TEMP 97; O2SAT 95
[2024-10-25] MEDS: POTASSIUM CHLORIDE 20 MEQ TAB.PRT.SR PO ONE (10:03)
[2024-10-25 11:00] VITALS: BP 122/58; TEMP 97.5; O2SAT 96
== END 2024-10-25 13:40 | disposition home health service (06) | DRG 69 ==
LOC: ER 19:36 → TELE3 22:20
PROVIDERS: ADMIT Internal Medicine; ATTEND Nurse Practitioner Family
DX: G45.9 Transient cerebral ischemic attack, unspecified (principal); G93.41 Metabolic encephalopathy; E85.4 Organ-limited amyloidosis; I48.91 Unspecified atrial fibrillation; M54.50 Low back pain, unspecified; G93.89 Other specified disorders of brain; S42.031D Displaced fracture of lateral end of right clavicle, subsequent encounter for fracture with routine healing; W19.XXXD Unspecified fall, subsequent encounter; S70.01XA Contusion of right hip, initial encounter; W01.0XXA Fall on same level from slipping, tripping and stumbling without subsequent striking against object, initial encounter; Y92.009 Unspecified place in unspecified non-institutional (private) residence as the place of occurrence of the external cause; I68.0 Cerebral amyloid angiopathy; M16.11 Unilateral primary osteoarthritis, right hip; E03.8 Other specified hypothyroidism; I10 Essential (primary) hypertension; Z79.82 Long term (current) use of aspirin; Z86.73 Personal history of transient ischemic attack (TIA), and cerebral infarction without residual deficits; Z79.899 Other long term (current) drug therapy; Z95.818 Presence of other cardiac implants and grafts
CPT/HCPCS: 36415; 70450; 70496; 70551; 71045; 72100; 72170; 72192; 83735; 84100; 84443; 84481; 84484; 85025; 85610; 93307; 93880; A4663; C1758; G0378; J1650; Q9967

== ENCOUNTER 2024-10-26 20:39 | Inpatient (IN) | payer MEDICARE ==
[~2024-10-26] VITALS: Ht 165.1 cm; Wt 48.5 kg
[~2024-10-26 20:39] MED LIST changes: -CALC-1258 PO; +CLOP75TA33 PO; +FOLI1TAB94 PO; -MIRT-93 PO; -NALT50TA PO; +SERT25TA PO; -UBID100C13 PO
[2024-10-26] MEDS ORDERED: CEFTRIAXONE /D5W 50ML IVPB **ER PYXIS IV ONE (21:06)
[2024-10-26 21:16] LABS: BASOPHILS # (AUTO) 0.1 K/UL (0.0-0.2); BASOPHILS % (AUTO) 0.7 % (0.0-2.0); DIFFERENTIAL COMMENT 0; EOSINOPHILS # (AUTO) 0.2 K/uL (0.0-0.7); EOSINOPHILS % (AUTO) 2.2 % (0.0-7.0); HEMATOCRIT 37.9 % (31.2-41.9); HEMOGLOBIN 12.8 g/dL (10.9-14.3); LYMPHOCYTES % (AUTO) 26.4 % (20.5-51.5); MEAN CORPUSCULAR HEMOGLOBIN 29.6 uug (24.7-32.8); MEAN CORPUSCULAR HGB CONC 34 g/dL (32.3-35.6); MEAN CORPUSCULAR VOLUME 87.6 fL (75.5-95.3); MONOCYTES # (AUTO) 0.8 K/uL (0.1-1.30); MONOCYTES % (AUTO) 10.6 % (0.0-11.0); NEUTROPHILS # (AUTO) 4.5 K/uL (1.8-8.9); NEUTROPHILS % (AUTO) 60.1 % (38.5-71.5); PLATELET COUNT (AUTO) 161 K/uL (179-408); RED BLOOD CELL COUNT(AUTO) 4.33 MIL/uL (3.63-4.92); RED CELL DISTRIBUTION WIDTH 15.6 % (12.3-17.7); WHITE BLOOD COUNT (AUTO) 7.5 K/uL (3.8-11.8)
[2024-10-26 21:35] LABS: ALANINE AMINOTRANSFERASE 36 U/L (14-59); ALBUMIN 3.3 g/dL (3.4-5.0); ALKALINE PHOSPHATASE 63 U/L (50-136); ASPARTATE AMINOTRANSFERASE 26 U/L (15-37); BILIRUBIN,DIRECT 0.3 mg/dL (0.0-0.2); BILIRUBIN,TOTAL 0.8 mg/dL (0.2-1.0); CALCIUM 10.4 mg/dL (8.5-10.1); CARBON DIOXIDE 26 mmol/L (21-32); CHLORIDE 104 mmol/L (98-107); CREATININE 0.7 mg/dL (0.6-1.3); GLUCOSE 100 mg/dL (74-106); NT-PRO BNP 1897 pg/mL (0-125); POTASSIUM 3.5 mmol/L (3.5-5.1); SODIUM SERUM 141 mmol/L (136-145); TOTAL PROTEIN, SERUM 6.4 g/dL (6.4-8.2); UREA NITROGEN, BLOOD 18 mg/dL (7-18)
[2024-10-26] MEDS: CEFTRIAXONE 1 G in IV DEXTROSE 5% 50 ML IV ONE (21:45)
[2024-10-26] MEDS: IV NORMAL SALINE 1000 ML BAG IV ONE (21:45)
[2024-10-27 01:00] LABS: *BILIRUBIN,URIN NEGATIVE (NEGATIVE); *BLOOD, URINE NEGATIVE (NEGATIVE); *CLARITY,URINE Other (CLEAR); *COLOR,URINE Other (YELLOW); *KETONES,URINE 1+ (NEGATIVE); *PROTEIN,URINE 1+ (NEGATIVE); *UROBILINOGEN,URINE 0.2 E.U./dl (NORMAL); LEUKOCYTE ESTERASE ,URINE NEGATIVE (NEGATIVE); NITRITE, URINE NEGATIVE (NEGATIVE); PH,URINE 6.5 (5.0-8.0); UGLUCOSE NEGATIVE (NEGATIVE)
[2024-10-27 01:15] LABS: RBC,URINE 0-3 /HPF (0-3)
[2024-10-27 01:16] LABS: BACTERIA,URINE MANY /HPF (NONE SEEN); CALCIUM OXALATE CRYSTALS,UR FEW /HPF (NONE SEEN); SQUAMOUS EPITHELIAL CELL,UR FEW /HPF (NONE SEEN); WBC,URINE NONE SEEN /HPF (0-3)
[2024-10-27 02:15] VITALS: BP 134/89; TEMP 98; O2SAT 95
[2024-10-27] MEDS ORDERED: ONDANSETRON 4 MG/2 ML VIAL IV PRN (03:00)
[2024-10-27] MEDS ORDERED: MORPHINE SULFATE 2 MG/1 ML DISP.SYRIN IV PRN (03:00)
[2024-10-27] MEDS: IV NS 1000 ML 1,000 ML IV PRN (03:41)
[2024-10-27 05:00] VITALS: BP 145/76; TEMP 98.1; O2SAT 95
[2024-10-27 06:31] LABS: BASOPHILS # (AUTO) 0.1 K/UL (0.0-0.2); BASOPHILS % (AUTO) 0.7 % (0.0-2.0); EOSINOPHILS # (AUTO) 0.3 K/uL (0.0-0.7); EOSINOPHILS % (AUTO) 4.1 % (0.0-7.0); HEMATOCRIT 36.9 % (31.2-41.9); HEMOGLOBIN 12.4 g/dL (10.9-14.3); LYMPHOCYTES # (AUTO) 2.3 K/uL (0.8-4.8); LYMPHOCYTES % (AUTO) 27.3 % (20.5-51.5); MEAN CORPUSCULAR HEMOGLOBIN 29.7 uug (24.7-32.8); MEAN CORPUSCULAR HGB CONC 34 g/dL (32.3-35.6); MEAN CORPUSCULAR VOLUME 88.4 fL (75.5-95.3); MONOCYTES # (AUTO) 0.7 K/uL (0.1-1.30); MONOCYTES % (AUTO) 8.5 % (0.0-11.0); NEUTROPHILS # (AUTO) 4.9 K/uL (1.8-8.9); NEUTROPHILS % (AUTO) 59.4 % (38.5-71.5); PLATELET COUNT (AUTO) 162 K/uL (179-408); RED BLOOD CELL COUNT(AUTO) 4.18 MIL/uL (3.63-4.92); RED CELL DISTRIBUTION WIDTH 15.9 % (12.3-17.7); WHITE BLOOD COUNT (AUTO) 8.3 K/uL (3.8-11.8)
[2024-10-27 06:42] LABS: DIFFERENTIAL COMMENT 1
[2024-10-27 07:03] LABS: ALANINE AMINOTRANSFERASE 33 U/L (14-59); ALBUMIN 3.1 g/dL (3.4-5.0); ALKALINE PHOSPHATASE 60 U/L (50-136); ASPARTATE AMINOTRANSFERASE 22 U/L (15-37); BILIRUBIN,TOTAL 0.8 mg/dL (0.2-1.0); CALCIUM 9.4 mg/dL (8.5-10.1); CARBON DIOXIDE 27 mmol/L (21-32); CHLORIDE 107 mmol/L (98-107); CREATININE 0.6 mg/dL (0.6-1.3); GLUCOSE 91 mg/dL (74-106); PHOSPHOROUS 2.7 mg/dL (2.5-4.9); SODIUM SERUM 142 mmol/L (136-145); TOTAL PROTEIN, SERUM 6.4 g/dL (6.4-8.2); UREA NITROGEN, BLOOD 14 mg/dL (7-18)
[2024-10-27 07:22] LABS: POTASSIUM 3.4 mmol/L (3.5-5.1)
[2024-10-27 07:48] VITALS: BP 147/81; TEMP 97.7
[2024-10-27] MEDS: PANTOPRAZOLE SODIUM 40 MG VIAL IV SCH (08:52)
[2024-10-27] MEDS: POTASSIUM CHLORIDE 50 ML IV SCH (10:36)
[2024-10-27 12:36] VITALS: BP 129/78; TEMP 97.8; O2SAT 96
[2024-10-27 16:40] VITALS: BP 110/73; TEMP 97.5; O2SAT 96
[2024-10-27 20:47] VITALS: BP 155/88; TEMP 97.7; O2SAT 98
[2024-10-28 00:35] VITALS: BP 160/88; TEMP 97.5; O2SAT 96
[2024-10-28] MEDS: ENALAPRILAT DIHYDRATE 1.25 MG/1 ML VIAL IV PRN (04:13)
[2024-10-28 04:49] VITALS: BP 179/92; TEMP 97.7; O2SAT 94
[2024-10-28 05:02] VITALS: BP 150/79
[2024-10-28 06:49] LABS: CARBON DIOXIDE 23 mmol/L (21-32); CHLORIDE 105 mmol/L (98-107); CREATININE 0.5 mg/dL (0.6-1.3); GLUCOSE 82 mg/dL (74-106); POTASSIUM 3.6 mmol/L (3.5-5.1); SODIUM SERUM 142 mmol/L (136-145); UREA NITROGEN, BLOOD 9 mg/dL (7-18)
[2024-10-28 07:39] VITALS: BP 145/97; TEMP 97.8; O2SAT 94
[2024-10-28 07:50] VITALS: BP 132/85; TEMP 98.5; O2SAT 95
[2024-10-28] MEDS: ACETAMINOPHEN 650 MG SUPP.RECT RC PRN (10:31)
[2024-10-28 19:00] VITALS: BP 143/87; TEMP 97.9; O2SAT 95
[2024-10-28] MEDS: FOLIC ACID 1 MG TABLET PO SCH (19:09)
[2024-10-28] MEDS: ASPIRIN EC 81 MG TABLET.DR PO SCH (19:09)
[2024-10-28] MEDS: CLOPIDOGREL 75 MG TABLET PO SCH (19:10)
[2024-10-28] MEDS: ATORVASTATIN 20 MG TABLET PO SCH (20:24)
[2024-10-28] MEDS: SERTRALINE HCL 50 MG TABLET PO SCH (20:24)
[2024-10-29] VITALS: BP 150/81; TEMP 98; O2SAT 97
[2024-10-29 04:00] VITALS: BP 146/80; TEMP 98.4; O2SAT 95
[2024-10-29 07:43] VITALS: BP 102/81; TEMP 98.2; O2SAT 93
[2024-10-29] MEDS: SENNOSIDES 1 TABLET PO SCH (08:28)
[2024-10-29] MEDS: MULTIVIT, IRON, MIN NO. 8, FA TABLET PO SCH (08:28)
[2024-10-29] MEDS: ACETAMINOPHEN 325 MG TABLET PO PRN (08:35)
[2024-10-29 11:29] VITALS: BP 138/86; TEMP 98.4; O2SAT 94
== END 2024-10-29 15:45 | disposition home health service (06) | DRG 71 ==
LOC: ER 20:39 → TELE3 22:00
PROVIDERS: ADMIT Internal Medicine; ATTEND Internal Medicine
DX: G93.41 Metabolic encephalopathy (principal); I48.20 Chronic atrial fibrillation, unspecified; Z68.1 Body mass index [BMI] 19.9 or less, adult; R62.7 Adult failure to thrive; S42.031D Displaced fracture of lateral end of right clavicle, subsequent encounter for fracture with routine healing; E03.8 Other specified hypothyroidism; Z79.02 Long term (current) use of antithrombotics/antiplatelets; Z79.82 Long term (current) use of aspirin; Z79.899 Other long term (current) drug therapy; S70.01XD Contusion of right hip, subsequent encounter; X58.XXXD Exposure to other specified factors, subsequent encounter; F03.90 Unspecified dementia, unspecified severity, without behavioral disturbance, psychotic disturbance, mood disturbance, and anxiety; Z60.8 Other problems related to social environment; Z86.73 Personal history of transient ischemic attack (TIA), and cerebral infarction without residual deficits; R26.2 Difficulty in walking, not elsewhere classified; M15.9 Polyosteoarthritis, unspecified
CPT/HCPCS: 36415; 71045; 83605; 83735; 84100; 84443; 84484; 85025; 85730; 87040; C1758; G0378; J0696; J2405; J2470; J3480; J3490; J7040